=== PATIENT | female | born 1960 | race Caucasian/White ===

== ENCOUNTER 2021-01-26 14:24 | Emergency (ER) | payer OTHER, SELFPAY ==
[2021-01-26 15:26] VITALS: BP 188/73; PULSE 74; RESP 18; TEMP 36.8; O2SAT 100
--- NOTE | 2021-01-26 16:53 | ED.WOUNDLAC ---
HPI - Wound/Laceration General Chief Complaint: Wound/Laceration Stated Complaint: rt knee tenderness Time Seen by Provider: 01/26/21 16:42 Source: patient and RN notes reviewed Mode of arrival: ambulatory Limitations: no limitations History of Present Illness HPI narrative: Patient presents today complaining of a wound to her right knee that will not heal. She fell onto concrete ground twice causing a wound to her knee approximately 1 month ago causing a wound. She has been cleaning it with soap and water and applying Neosporin. Patient has diabetes and states that her blood sugars are not too well controlled. States the area recently became more reddened and painful. She has an appointment in 2 days at her doctor's office to have the area looked at, but did not want to wait. Related Data Home Medications Medication Instructions Recorded Confirmed atorvastatin 10 mg PO DAILY 01/26/21 01/26/21 bupropion HCl 150 mg PO DAILY 01/26/21 01/26/21 cholecalciferol (vitamin D3) 1,250 mcg PO WEEKLY 01/26/21 01/26/21 gabapentin 300 mg PO BID 01/26/21 01/26/21 hydrocodone-acetaminophen 1 tablet PO Q6H PRN 01/26/21 01/26/21 ibuprofen 800 mg PO Q8H 01/26/21 01/26/21 liraglutide [Victoza 3-Yassine] mg SUBCUT 01/26/21 01/26/21 metformin 1,000 mg PO BID 01/26/21 01/26/21 omeprazole 40 mg PO DAILY 01/26/21 01/26/21 phentermine 30 mg PO DAILY 01/26/21 01/26/21 Allergies Allergy/AdvReac Type Severity Reaction Status Date / Time No Known Allergies Allergy Unknown Verified 01/26/21 15:42 Review of Systems Review of Systems: CONSTITUTIONAL: Denies body aches, fever, chills, or sweats. EYES: Denies visual changes, redness, or discharge. ENT: Denies rhinorrhea, congestion, sore throat, or otalgia. CARDIOVASCULAR: Denies chest pain, palpitations, or edema. RESPIRATORY: Denies cough or dyspnea. GASTROINTESTINAL: Denies abdominal pain, nausea, vomiting, or diarrhea. GENITOURINARY: Denies dysuria or hematuria. SKIN: Denies rash, itching. + Wound to right lower leg MUSCULOSKELETAL: Denies back pain, joint pain, or myalgia. NEUROLOGIC: Denies headache, numbness, tingling, or weakness. PSYCH: Denies depression or anxiety. [facility] Past Medical History Medical History (Updated 01/26/21 @ 19:09 by Aarti Prakash, [facility], ) Diabetes GERD (gastroesophageal reflux disease) High cholesterol Comments At time of signature, I have reviewed and agree with nursing past medical, surgical, social and family history unless otherwise noted. Please see nursing chart for further information. There is no relevant family history pertinent to the presenting complaint Exam Narrative: GENERAL: Well-appearing, well-nourished, and in no acute distress. HEAD: Normocephalic, atraumatic. EYES: EOMI. No redness or drainage. Conjunctivae normal. ENT: Mucous membranes pink and moist. NECK: Normal AROM. CHEST: No respiratory distress. EXTREMITIES: Normal range of motion. No edema. SKIN: Warm, dry, no rash. Capillary refill normal. Normal skin turgor. 8 x 5 cm area of erythema with some mild fluctuance proximal to the right patellar tendon. 2 x 1 cm dark scabbed area in the proximal portion of this area. Entire area is tender to palpation. NEURO: No focal deficits. Alert and oriented x3. Gait steady. PSYCH: Normal affect. No signs of depression or anxiety. Course Vital Signs Vital signs: Vital Signs Temperature 98.2 F 01/26/21 15:26 Pulse Rate 74 01/26/21 15:26 Respiratory Rate 18 01/26/21 15:26 Blood Pressure 188/73 H 01/26/21 15:26 Pulse Oximetry 100 01/26/21 15:26 Temperature 98.2 F 01/26/21 15:26 Pulse Rate 74 01/26/21 15:26 Respiratory Rate 18 01/26/21 15:26 Blood Pressure 188/73 H 01/26/21 15:26 Pulse Oximetry 100 01/26/21 15:26 Reviewed. Pt has been instructed to follow up with her PCP regarding her elevated blood pressure today. MDM - Wound/Laceration Differential Diagnosis Differential diagnosis: Likely
== END 2021-01-26 17:00 | disposition home or self-care (01) ==
PROVIDERS: Emergency Provider Nurse Practitioner
DX: L03.115 Cellulitis of right lower limb (principal); E11.9 Type 2 diabetes mellitus without complications; K21.9 Gastro-esophageal reflux disease without esophagitis; E78.00 Pure hypercholesterolemia, unspecified
CPT/HCPCS: 99213; G0463

== ENCOUNTER 2021-02-10 17:10 | Emergency (ER) | payer OTHER, SELFPAY ==
[2021-02-10 18:01] VITALS: BP 190/86; PULSE 92; RESP 18; TEMP 36.7; O2SAT 100
--- NOTE | 2021-02-10 18:35 | ED.WOUNDLAC ---
HPI - Wound/Laceration General Chief Complaint: Wound/Laceration Stated Complaint: rt knee pain Source: patient and RN notes reviewed Limitations: no limitations History of Present Illness HPI narrative: The patient, on several meds including for diabetes, presents with persistent skin eruption/wound. Patient states a couple weeks ago she was treated for cellulitis of her right proximal tibia, for 10 days with clindamycin 4 times daily. She had significant improvement, but is worried about the dark scab in the center. No fever, abscess/induration, streaking; discussed plan to extend/refill another antibiotic til min 2 weeks, and to follow-up with wound care clinic [reference provided ] or PMD. Vital signs reviewed remarkable for afebrile, elevated BP 190/96 The patient has been informed that they may have pre-hypertension or Hypertension based on a BP reading in the department. I recommend that the patient call the primary care provider listed on their discharge instructions or a physician of their choice this week to arrange follow up for further evaluation of possible pre-hypertension or Hypertension ; Related Data Home Medications Medication Instructions Recorded Confirmed atorvastatin 10 mg PO DAILY 01/26/21 02/10/21 bupropion HCl 150 mg PO DAILY 01/26/21 02/10/21 hydrocodone-acetaminophen 1 tablet PO Q6H PRN 01/26/21 02/10/21 ibuprofen 800 mg PO Q8H 01/26/21 02/10/21 metformin 1,000 mg PO BID 01/26/21 02/10/21 phentermine 30 mg PO DAILY 01/26/21 02/10/21 glipizide 10 mg PO BID 02/10/21 02/10/21 Allergies Allergy/AdvReac Type Severity Reaction Status Date / Time No Known Allergies Allergy Unknown Verified 02/10/21 18:15 Review of Systems Review of Systems: General/Constitutional: No weight loss,fever Eyes: N0: Redness,discharge Ears/Nose/Throat: No: Epistaxis,ear discharge Respiratory: Denies: Hemoptysis Gastrointestinal: No Vomiting, Bleeding-rectal Skin: REPORTS lumps, eruption Neurologic: No Focal Weakness,Sz Hematologic: Denies: Petechiae/Purpura Psychiatric: No: Suicida ideationl All Other Systems: Reviewed and Negative [facility] Past Medical History Medical History (Updated 02/11/21 @ 00:01 by Background Daemcarlie) Diabetes GERD (gastroesophageal reflux disease) High cholesterol Comments At time of signature, agree with nursing past medical, surgical, social and family history. There is no relevant family history pertinent to the presenting complaint Exam Narrative: General Appearance: Well appearing, Well nourished, No distress EYE: PERRLA, EOMI, Conjunctiva clear Ears: External ear normal, Auditory canal normal Nose: Normal nose, Nares clear Mouth/Throat: Normal appearing, Normal lips Neck: Supple Respiratory: Airway patent, No respiratory distress MS-RLE: Normal strength (mostly intact, almost unlimited flexion/extension ), Tenderness (proximal anteriorly, with mild decreased ROM), Scant swelling (anteriorly), Other (no anterior drawer, no collateral laxity,) Skin: Fairly well healing grade 0-1 ulceration and resolving cellulitis otherwise warm, Dry, Normal color Neurological: A&O x3, Speech clear, CN II-XII intact Psychiatric: Normal mood, Normal affect Course Vital Signs Vital signs: Vital Signs Temperature 98.1 F 02/10/21 18:01 Pulse Rate 92 02/10/21 18:01 Respiratory Rate 18 02/10/21 18:01 Blood Pressure 190/86 H 02/10/21 18:01 Pulse Oximetry 100 02/10/21 18:01 Temperature 98.1 F 02/10/21 18:01 Pulse Rate 92 02/10/21 18:01 Respiratory Rate 18 02/10/21 18:01 Blood Pressure 190/86 H 02/10/21 18:01 Pulse Oximetry 100 02/10/21 18:01 Discharge Plan Discharge Clinical Impression: Skin ulcer due to diabetes mellitus Patient Disposition: Home, Self-Care Condition: Stable Instructions: Antibiotic Form Additional Instructions: Keep photo log of area See your doctor or reference wound care clinic in follow-up Prescriptions:
== END 2021-02-10 18:49 | disposition home or self-care (01) ==
PROVIDERS: Emergency Provider Emergency Medicine; PCP Nurse Practitioner Family
DX: E11.622 Type 2 diabetes mellitus with other skin ulcer (principal); L97.819 Non-pressure chronic ulcer of other part of right lower leg with unspecified severity; Z79.891 Long term (current) use of opiate analgesic; Z79.1 Long term (current) use of non-steroidal anti-inflammatories (NSAID)
CPT/HCPCS: 87070; 87205; 99213; G0463